=== PATIENT | male | born 1990 | race Caucasian/White ===

== ENCOUNTER 2019-10-04 13:59 | Emergency (ER) | payer OTHER, SELFPAY ==
--- NOTE | ~2019-10-04 | CT_ITS ---
EXAMINATION: CT abdomen pelvis w con DATE: 10/04/2019 17:51 INDICATION: Right lower quadrant abdominal pain TECHNIQUE: Computed tomography (CT) of the abdomen and pelvis was performed with with 100 mL Omnipaqu e-350 mL Omnipaque-350 intravenous contrast. Automated exposure control and iterative reconstruction technique were employed. The dose-length product was 220.89 mGy-cm. COMPARISON: None FINDINGS: Lung bases are clear. Heart size is normal. Mild bilateral gynecomastia. Liver, gallbladder, spleen, pancreas, bilateral adrenal glands and kidneys are normal. The fluid-filled appendix measures up to 6 mm in diameter and is without surrounding inflammatory stranding to suggest acute appendicitis. No a bnormal bowel wall thickening or obstruction. Bladder is normal. No free intraperitoneal gas or fluid . No pathologically enlarged abdominal or pelvic lymphadenopathy. Bones are unremarkable. IMPRESSION: 1. No acute intra-abdominal/pelvic process. Reviewed, dictated and finalized at location A. IERGE RECEPTIONIST
[2019-10-04 14:37] VITALS: BP 113/64; PULSE 84; RESP 19; TEMP 37.7; O2SAT 99
[2019-10-04 15:01] LABS: Basophils Absolute Auto 0.1 K/mm3 (0.0-0.1); Basophils Percent Auto 0.4 % (0.2-1.2); Eosinophils Absolute Auto 0.1 K/mm3 (0-0.3); Eosinophils Percent Auto 0.8 % (0-4.4); Hemoglobin 14.5 g/dL (14.0-18.0); Immature Granulocyte Absolute 0.03 K/mm3 (0.00-0.031); Immature Granulocyte Percent A 0.2 % (0-0.5); Lymphocytes Absolute Auto 1.33 K/mm3 (0.9-3.2); Lymphocytes Percent Auto 10.9 % (18.3-44.2); Mean Corpuscular Hemoglobin 30.1 pg (26-34); Mean Corpuscular Volume 91.5 fl (80-100); Mean Platelet Volume 9.9 fl (7.4-10.4); Monocytes Absolute Auto 0.7 K/mm3 (0.1-0.6); Monocytes Percent Auto 5.5 % (2.6-8.5); Neutrophils Percent Auto 82.2 % (45.5-73.1); Platelet Count Result 275 k/mm3 (150-375); Red Blood Count 4.81 M/mm3 (4.6-6.20); Red Cell Distribution Width 12.7 % (11.5-14.5); White Blood Count 12.2 K/mm3 (4.5-10.0)
[2019-10-04 15:13] LABS: Add Urine Microscopic? YES; Appearance Urine Clear (Clear); Bilirubin Urine Negative (Negative); Blood Urine Negative (Negative); Color Urine Yellow (Yellow); Glucose Urine UA Negative (Negative); Ketones Urine 1+ mg/dL (Negative); Leukocyte Esterase Ur Negative LEU/UL (Negative); Mucus Urine Few /lpf; Nitrate Urine Negative (Negative); Protein Urine Negative (Negative); RBC Urine 0-2 /hpf (0-2); Specific Grav Ur 1.029 (1.001-1.035); Squamous Epithelial Cell Urine Rare /hpf (Few); WBC Urine 0-3 /hpf
[2019-10-04 15:19] LABS: Alanine Aminotransferase 21 U/L (4-50); Albumin Level 4.8 g/dL (3.5-5.1); Alkaline Phosphatase 52 U/L (38-126); Aspartate Amino Transferase 26 U/L (17-59); Bilirubin,Total 0.7 mg/dL (0.2-1.3); Blood Urea Nitrogen 13 mg/dL (9-20); Calcium 9.6 mg/dL (8.4-10.2); Carbon Dioxide 28 mmol/L (22-30); Chloride 98 mmol/L (98-107); Estimated Glomerular Filt Rate > 60; Glucose 114 mg/dL (75-110); Lipase 39 U/L (23-300); Sodium 136 mmol/L (137-145)
--- NOTE | 2019-10-04 16:03 | ED.ABDPAIN ---
HPI - Abdominal Pain General Chief Complaint: Abdominal Pain Stated Complaint: Abd pain Time Seen by Provider: 10/04/19 16:01 Source: patient Mode of arrival: ambulatory Limitations: no limitations History of Present Illness HPI narrative: Pt is a 29 y/o male who presents to the ED with c/o non-radiating, RLQ, ABD pain that started at 10AM. He reports associated nausea, subjective fever, and dysuria, but he denies vomiting, diarrhea, or hematuria. Pt has not taken any pain medicine. He denies any allergies or a PSHx. MD elicited complaint: abdominal pain Onset (ago): hour(s) (8) Pain Consistency: constant Location: RLQ Radiation: none Associated symptoms: nausea, fever and dysuria Related Data Home Medications Medication Instructions Recorded Confirmed atomoxetine PO 10/04/19 10/04/19 fluoxetine mg 10/04/19 hydrocortisone TOPICAL 10/04/19 hydroxyzine HCl 10/04/19 Allergies Allergy/AdvReac Type Severity Reaction Status Date / Time No Known Allergies Allergy Unverified 10/04/19 16:28 Review of Systems Review of Systems: All systems reviewed & are unremarkable except as noted in HPI and below Constitutional: Constitutional: Reports fever(s) Gastrointestinal: Gastrointestinal: Reports abdominal pain (RLQ), Denies diarrhea, Reports nausea and Denies vomiting Genitourinary: Genitourinary: Denies hematuria and Denies dysuria PMF Past Medical History Medical History (Updated 10/04/19 @ 18:35 by Federico Eric DO) No significant past medical history Surgical History Surgical History (Updated 10/04/19 @ 16:18 by Keaton Lind) No significant past surgical history Social History Social History (Updated 10/04/19 @ 16:18 by Keaton Lind) Smoking status: Never smoker Gender identity (if verbalized by the patient): Male Exam Narrative: Exam Narrative: APPEARANCE: No acute distress, nontoxic, resting in bed HEENT: Normocephalic, atraumatic, OMM RESPIRATORY: No respiratory distress, clear to auscultation bilaterally with no rhonchi wheezing or rales CARDIOVASCULAR: RRR s murmur ABDOMINAL: Soft, nondistended, tender palpation right lower quadrant, no tenderness right upper quadrant, left upper quadrant left lower quadrant, no rebound or guarding MUSCULOSKELETAl: Moves all extremities. No clubbing, cyanosis or edema. NEURO: Awake and alert. Following commands, speech normal, no focal deficits SKIN:: Warm, dry. Normal Color PSYCHIATRIC: Normal affect/mood Course Course Emergency Course: Patient states that they are feeling much better at this time. States abdominal pain has resolved. Repeat abdominal exam shows the patient's abdomen to be soft and nontender. Discussed with patient results of workup and diagnosis. Discussed need for follow-up with primary care physician, reasons to return to the emergency department in proper use of medication. Patient understands and agrees to current treatment plan Vital Signs Vital signs: Vital Signs Temperature 99.9 F H 10/04/19 14:37 Pulse Rate 84 10/04/19 14:37 Respiratory Rate 19 10/04/19 14:37 Blood Pressure 113/64 10/04/19 14:37 Pulse Oximetry 99 10/04/19 14:37 Temperature 98.4 F 10/04/19 18:30 Pulse Rate 64 10/04/19 18:30 Respiratory Rate 16 10/04/19 18:30 Blood Pressure 110/69 10/04/19 18:30 Pulse Oximetry 98 10/04/19 18:30 MDM - Abdominal Pain MDM Narrative Medical decision making narrative: Patient's abdomen is soft without significant pain or signs of surgical abdomen on serial exams. Lab and x-ray evaluations are reviewed and patient is felt to be a reasonable candidate for outpatient management. Patient was instructed as to limitations of x-ray and laboratory evaluation and encouraged to return to ED or primary physician for repeat exam in 12 hours if continued or worsening pain Lab Data Result diagrams: 10/04/19 14:41 10/04/19 14:41 Labs: Lab Results 10/04/19 10/04/19
[2019-10-04] MEDS: LACTATED RINGERS 1,000 ML 999 ML IV CONT (16:20)
[2019-10-04] MEDS: KETOROLAC 30 MG/ML VIAL (*BKC) IV PUSH (16:21)
[2019-10-04 18:30] VITALS: BP 110/69; PULSE 64; RESP 16; TEMP 36.9; O2SAT 98
== END 2019-10-04 18:52 | disposition home or self-care (01) ==
PROVIDERS: Emergency Provider Emergency Medicine
DX: R10.31 Right lower quadrant pain (principal)
CPT/HCPCS: 36415; 74177; 80053; 81001; 83690; 85025; 96361; 96374; 99284; J1885; J7120; Q9967

== ENCOUNTER 2020-07-06 09:20 | Emergency (ER) | payer OTHER, SELFPAY ==
--- NOTE | ~2020-07-06 | XR_ITS ---
EXAMINATION: XR hand LT min 3V INDICATION: Left hand pain TECHNIQUE: Three views of the left hand are obtained. COMPARISON: None available FINDINGS: There is no fracture, dislocation, or subluxation. The bones, soft tissues, and joint space s are normal. IMPRESSION: 1. No acute osseous abnormality. Reviewed, dictated and finalized at location A. ITY ASSURANCE ANALYST
[2020-07-06 09:36] VITALS: BP 124/86; PULSE 104; RESP 14; TEMP 36.4; O2SAT 99
--- NOTE | 2020-07-06 09:38 | ED.GENADULT ---
HPI - General Adult General Chief complaint: Extremity Injury, Upper Stated complaint: left thumb injury Time Seen by Provider: 07/06/20 09:25 Source: patient Mode of arrival: ambulatory Limitations: no limitations History of Present Illness HPI narrative: Patient presents with chief complaint of left thumb pain for 1 week after tripping over his dog and landing with his palms out. Patient states initially he was not able to move the thumb very much but he has gained back much of his range of motion but there is still some swelling to the base of the thumb as well as tenderness. Patient denies any prior fractures or any other injuries. Patient denies any open wounds. Patient denies any other medical problems or daily medications. Related Data Home Medications Medication Instructions Recorded Confirmed atomoxetine PO 10/04/19 10/04/19 fluoxetine mg 10/04/19 hydrocortisone TOPICAL 10/04/19 hydroxyzine HCl 10/04/19 Allergies Allergy/AdvReac Type Severity Reaction Status Date / Time No Known Allergies Allergy Unverified 10/04/19 16:28 Review of Systems Review of Systems: Narrative: CONSTITUTIONAL: Denies fever, chills, or sweats. EYES: Denies visual changes, redness, or discharge. ENT: Denies rhinorrhea, congestion, sore throat, or otalgia. CARDIOVASCULAR: Denies chest pain, palpitations, or edema. RESPIRATORY: Denies cough or dyspnea. GASTROINTESTINAL: Denies abdominal pain, nausea, vomiting, or diarrhea. GENITOURINARY: Denies dysuria or hematuria. SKIN: Denies rash or itching. MUSCULOSKELETAL: Reports left thumb pain denies back pain or myalgia. NEUROLOGIC: Denies headache, numbness, dizziness, or weakness. PSYCHIATRIC: Denies anxiety or depression. PMFSH Past Medical History Medical History (Updated 07/06/20 @ 10:31 by Layo Hare PA-C) No significant past medical history Surgical History Surgical History (Updated 10/04/19 @ 16:18 by Keaton Lind) No significant past surgical history Social History Social History (Updated 10/04/19 @ 16:18 by Keaton Lind) Smoking status: Never smoker Gender identity (if verbalized by the patient): Male Exam Narrative: Exam Narrative: GENERAL: Well-appearing, well-nourished, and in no acute distress. HEAD: Normocephalic, atraumatic. EYES: PERRLA and EOMI. ENT: Nares clear, no rhinorrhea or epistaxis. Mucous membranes moist. CHEST: Clear to auscultation. No respiratory distress. No wheezes rales or rhonchi HEART: Regular rate and rhythm. No murmur heard. Normal peripheral pulses. EXTREMITIES: Mild edema to the base of the left arm. Range of motion intact but movement of the base of the thumb does elicit pain. No open wounds. Erythema not noted. SKIN: Warm, dry, no rash. NEURO: No focal deficits. Alert and oriented x3. PSYCH: Normal mood and affect. Course Vital Signs Vital signs: Vital Signs Temperature 97.6 F 07/06/20 09:36 Pulse Rate 104 H 07/06/20 09:36 Respiratory Rate 14 07/06/20 09:36 Blood Pressure 124/86 07/06/20 09:36 Pulse Oximetry 99 07/06/20 09:36 Temperature 97.6 F 07/06/20 09:36 Pulse Rate 104 H 07/06/20 09:36 Respiratory Rate 14 07/06/20 09:36 Blood Pressure 124/86 07/06/20 09:36 Pulse Oximetry 99 07/06/20 09:36 Medical Decision Making MDM Narrative Medical decision making narrative: Discussed with patient that there is no signs of fracture but discussed with him RICE instructions for sprains and strains. Instructed him to follow-up with hand specialist if symptoms persist for further evaluation. Patient verbalized understanding agreement with plan and denies any other questions or concerns. Differential Diagnosis Differential Diagnosis: Fracture, sprain, strain Vital Signs Vital Signs: Vital Signs Temperature 97.6 F 07/06/20 09:36 Pulse Rate 104 H 07/06/20 09:36 Respiratory Rate 14 07/06/20 09:36 Blood Pressure 124/86 07/06/20 09:36 Pulse Oximetry 99 07/06/20
[2020-07-06 10:55] VITALS: BP 127/74; PULSE 60; RESP 16; O2SAT 98
== END 2020-07-06 10:55 | disposition home or self-care (01) ==
PROVIDERS: Emergency Provider Emergency Medicine
DX: S63.642A Sprain of metacarpophalangeal joint of left thumb, initial encounter (principal); W01.0XXA Fall on same level from slipping, tripping and stumbling without subsequent striking against object, initial encounter
CPT/HCPCS: 73130; 99283

== ENCOUNTER 2021-04-08 02:19 | Observation (INO) | payer OTHER, SELFPAY ==
[2021-04-08] VITALS (17 sets, daily range): BP systolic 96–127; BP diastolic 58–86; PULSE 66–98; RESP 12–22; TEMP 36.2–37; O2SAT 96–100; BMI 23.6
--- NOTE | ~2021-04-08 | CT_ITS ---
EXAMINATION: CT abdomen pelvis w con DATE: 04/08/2021 04:29 INDICATION: Right lower quadrant abdominal pain TECHNIQUE: Computed tomography (CT) of the abdomen and pelvis was performed with 100 cc Omnipaque 350 intravenous contrast. The dose-length product was 271.25 mGy-cm. Automated exposure control and iter ative reconstruction technique were employed. COMPARISON: CT dated 10/04/2019. FINDINGS: Lung bases are unremarkable. Heart size normal. No significant pleural or pericardial effus ion. No significant vascular abnormality. No lymphadenopathy. The liver contains a subcentimeter hypodensity right hepatic lobe, most likely cysts. The spleen, gong creas, adrenal glands and kidneys are unremarkable. Gallbladder is present. Appendix is thickened measuring 8 mm with appendiceal enhancement in subtle periappendiceal infiltrat ion of the fat, suspicious for appendicitis. Clinically correlate. No evidence for perforation or abs cess. Nonobstructive bowel gas pattern. Moderate colonic fecal loading. IMPRESSION: 1. Appendiceal thickening, measuring 8 mm, with appendiceal enhancement and subtle periappendiceal in filtration of the fat, suspicious for appendicitis. Clinically correlate. Reviewed, dictated and finalized at location A. IMPRESSION: 1. Appendiceal thickening, measuring 8 mm, with appendiceal enhancement and sub tle periappendiceal infiltration of the fat, suspicious for appendicitis. Clini anderson correlate.
[2021-04-08 02:51] LABS: Basophils Absolute Auto 0.1 K/mm3 (0.0-0.1); Basophils Percent Auto 0.3 % (0.2-1.2); Eosinophils Percent Auto 0.1 % (0-4.4); Hematocrit 43.6 % (42.0-52.0); Hemoglobin 14.3 g/dL (14.0-18.0); Immature Granulocyte Absolute 0.09 K/mm3 (0.00-0.031); Immature Granulocyte Percent A 0.4 % (0-0.5); Lymphocytes Absolute Auto 1.33 K/mm3 (0.9-3.2); Lymphocytes Percent Auto 6.5 % (18.3-44.2); Mean Corpuscular HGB Conc 32.8 g/dl (32-36); Mean Corpuscular Hemoglobin 29.5 pg (26-34); Mean Corpuscular Volume 89.9 fl (80-100); Mean Platelet Volume 9.7 fl (7.4-10.4); Monocytes Absolute Auto 1.1 K/mm3 (0.1-0.6); Monocytes Percent Auto 5.4 % (2.6-8.5); Neutrophils Absolute Auto 17.7 K/mm3 (1.3-6.7); Neutrophils Percent Auto 87.3 % (45.5-73.1); Platelet Count Result 337 k/mm3 (150-375); Red Blood Count 4.85 M/mm3 (4.6-6.20); Red Cell Distribution Width 12.6 % (11.5-14.5); White Blood Count 20.4 K/mm3 (4.5-10.0)
[2021-04-08 03:07] LABS: Add Urine Microscopic? YES; Appearance Urine Clear (Clear); Bilirubin Urine Negative (Negative); Blood Urine Negative (Negative); Color Urine Yellow (Yellow); Glucose Urine UA Negative (Negative); Ketones Urine Trace mg/dL (Negative); Leukocyte Esterase Ur Negative LEU/UL (Negative); Nitrate Urine Negative (Negative); Protein Urine Negative (Negative); RBC Urine 0-2 /hpf (0-2); Specific Grav Ur 1.026 (1.001-1.035); Urobilinogen Urine Negative mg/dL (<2.0); WBC Urine 0-3 /hpf
[2021-04-08 03:23] LABS: Alanine Aminotransferase 22 U/L (4-50); Albumin Level 4.7 g/dL (3.5-5.1); Alkaline Phosphatase 65 U/L (38-126); Anion Gap 10 mmol/L (8-16); Aspartate Amino Transferase 32 U/L (17-59); Bilirubin,Total 0.8 mg/dL (0.2-1.3); Blood Urea Nitrogen 18 mg/dL (9-20); Calcium 9.7 mg/dL (8.4-10.2); Carbon Dioxide 23 mmol/L (22-30); Chloride 106 mmol/L (98-107); Estimated Glomerular Filt Rate > 60; Glucose 144 mg/dL (65-110); Lipase 51 U/L (23-300); Sodium 139 mmol/L (137-145)
--- NOTE | 2021-04-08 04:05 | ED.ABDPAIN ---
HPI - Abdominal Pain General Chief Complaint: Abdominal Pain Stated Complaint: abd pain Time Seen by Provider: 04/08/21 03:16 History of Present Illness HPI narrative: 30 yo male w/ h/o constipation presents to [facility] ED c/o abdominal pain. Severe RLQ abdominal pain since yesterday at about 1700. No radiation. Associated with nuasea, vomiting, subjective fever, and diaphoresis. He has never had this type of pain before. No previous abdominal surgeries. Related Data Home Medications Medication Instructions Recorded Confirmed atomoxetine PO 10/04/19 10/04/19 fluoxetine mg 10/04/19 hydrocortisone TOPICAL 10/04/19 hydroxyzine HCl 10/04/19 Allergies Allergy/AdvReac Type Severity Reaction Status Date / Time No Known Allergies Allergy Verified 04/08/21 02:35 Review of Systems Constitutional: Constitutional: Reports as per HPI Eyes: Eyes: Reports no additional eye complaints ENT: Reports system reviewed and no additional complaints, except as documented Cardiovascular: Cardiovascular: Denies chest pain Respiratory: Respiratory: Denies dyspnea Gastrointestinal: Gastrointestinal: Reports as per HPI Genitourinary: Genitourinary: Denies hematuria and Denies dysuria Musculoskeletal: Musculoskeletal: Denies back pain Neurologic: Reports system reviewed and no additional complaints, except as documented Psychiatric: Psychiatric: Reports anxiety and Reports depression [facility] Past Medical History Medical History No significant past medical history Surgical History Surgical History No significant past surgical history Social History Social History Smoking status: Never smoker Gender identity (if verbalized by the patient): Male Exam Const: General: alert and ill appearing acutely Orientation/consciousness: patient oriented x3 HENMT: Head: normal to inspection Neck: Neck: normal visual inspection Resp: Effort & Inspection: normal respiratory effort Auscultation: clear to auscultation bilaterally Cardio: Rate: regular rate Rhythm: regular rhythm GI: GI Palp: Yes Soft to palpation, Yes Tenderness to palpation present (GI) (RLQ), No Guarding due to palpation present (GI) and Yes Rebound tenderness present Auscultation: Hypoactive bowel sounds present Skin: General skin exam: normal color Neuro: General: patient oriented x3, moves all extremities and CN's II-XI intact bilaterally Speech: normal speech Extrem: General: normal to inspection Psych: Mental Status: mental status grossly normal Attitude: cooperative Course Vital Signs Vital signs: Vital Signs Temperature 36.4 C L 04/08/21 02:31 Pulse Rate 75 04/08/21 02:31 Respiratory Rate 20 04/08/21 02:31 Blood Pressure 127/86 04/08/21 02:31 Pulse Oximetry 100 04/08/21 02:31 Temperature 36.4 C L 04/08/21 02:31 Pulse Rate 78 04/08/21 04:00 Respiratory Rate 22 H 04/08/21 03:49 Blood Pressure 127/86 04/08/21 02:31 Pulse Oximetry 99 04/08/21 03:49 MDM - Abdominal Pain MDM Narrative Medical decision making narrative: Case discussed with Dr. Rosas. He will admit and see the patient this morning. Differential Diagnosis Differential diagnosis: Likely acute appendicitis, calculus of kidney, constipation and diverticulitis Medical Records Attestation: I reviewed the patient's medical records. Lab Data Attestation: I reviewed the patient's lab results. Result diagrams: 04/08/21 02:44 04/08/21 03:04 Labs: Lab Results 04/08/21 04/08/21 04/08/21 Range/Units 02:44 02:44 03:04 WBC 20.4 H (4.5-10.0) K/mm3 RBC 4.85 (4.6-6.20) M/mm3 Hgb 14.3 (14.0-18.0) g/dL Hct 43.6 (42.0-52.0) % MCV 89.9 (80-100) fl MCH 29.5 (26-34) pg MCHC 32.8 (32-36) g/dl RDW 12.6 (11.5-14.5) % Plt
[2021-04-08] MEDS: ONDANSETRON INJ 4 MG/2 ML VIAL IV PUSH (04:10)
[2021-04-08] MEDS: fentaNYL CITRATE INJ (*CRX) 100 MCG/2 ML VIAL 50 MCG IV PUSH ×2 (04:10→10:52)
--- NOTE | 2021-04-08 04:13 | PC.NURSE ---
Patient taken to CT.
[2021-04-08 04:30] LABS: Ethanol < 10 mg/dL (<10)
--- NOTE | 2021-04-08 06:44 | ADMGEN ---
This patient, Abad Taveras, was admitted to Medical Room 254-01. Patient/family oriented to hospital policies and general routines including ID bracelet, bed and alarms, visiting hours, pain management, procedures, bathroom and other care routines, personal items, smoking policy, room service/diet, and visiting hours. Information on how to activate the Rapid Response Team has been discussed. Patient/Family are encouraged to report perceived risks to care and to ask questions if they do not understand what they are told or what they should do.
[2021-04-08] MEDS: SODIUM CHLORIDE 0.9% IV 1,000 ML 125 ML IV CONT (07:18)
--- NOTE | 2021-04-08 10:33 | WPDANESEPPF ---
Anes - Initial Pre Proc Eval Procedure: Lap appendectomy Date/Time: 04/08/21 10:33 Surgeon: Freddy Rosas MD Pre Op Diagnosis: Acute appendicitis Patient Data Age: 30 Gender: M Height: 1.7 m Weight: 68.6 kg Last Vital Signs Temp 36.2 C L 04/08/21 07:21 Pulse 89 04/08/21 07:21 Resp 18 04/08/21 07:21 BP 114/69 04/08/21 07:21 Pulse Ox 98 04/08/21 07:21 Allergies Allergy/AdvReac Type Severity Reaction Status Date / Time No Known Allergies Allergy Verified 04/08/21 02:35 Home Medications Medication Instructions Recorded Confirmed Type hydrocodone-acetaminophen 1 - 2 tablet PO Q6H PRN #7 tablet 04/08/21 Rx triamcinolone acetonide 1 applic TOPICAL BID PRN 04/08/21 04/08/21 History Laboratory Tests 04/08/21 04/08/21 04/08/21 02:44 02:44 03:04 WBC 20.4 K/mm3 H K/mm3 (4.5-10.0) RBC 4.85 M/mm3 M/mm3 (4.6-6.20) Hgb 14.3 g/dL g/dL (14.0-18.0) Hct 43.6 % % (42.0-52.0) MCV 89.9 fl fl (80-100) MCH 29.5 pg pg (26-34) MCHC 32.8 g/dl g/dl (32-36) RDW 12.6 % % (11.5-14.5) Plt Count 337 k/mm3 k/mm3 (150-375) MPV 9.7 fl fl (7.4-10.4) Immature Gran % (Auto) 0.4 % % (0-0.5) Neut % (Auto) 87.3 % H % (45.5-73.1) Lymph % (Auto) 6.5 % L % (18.3-44.2) [place] % (Auto) 5.4 % % (2.6-8.5) Eos % (Auto) 0.1 % % (0-4.4) Baso % (Auto) 0.3 % % (0.2-1.2) Lymph # (Auto) 1.33 K/mm3 K/mm3 (0.9-3.2) [place] # (Auto) 1.1 K/mm3 H K/mm3 (0.1-0.6) Eos # (Auto) 0.0 K/mm3 K/mm3 (0-0.3) Baso # (Auto) 0.1 K/mm3 K/mm3 (0.0-0.1) Abs Immat Gran (auto) 0.09 K/mm3 H K/mm3 (0.00-0.031) Absolute Neuts (auto) 17.7 K/mm3 H K/mm3 (1.3-6.7) Absolute Nucleated RBC 0.0 K/mm3 K/mm3 (0.0-0.012) Nucleated RBC % 0.0 % % (0.0-0.2) Sodium 139 mmol/L mmol/L (137-145) Potassium 4.0 mmol/L mmol/L (3.4-5.0) Chloride 106 mmol/L mmol/L (98-107) Carbon Dioxide 23 mmol/L mmol/L (22-30) Anion Gap 10 mmol/L mmol/L (8-16) BUN 18 mg/dL mg/dL (9-20) Creatinine 1.00 mg/dL mg/dL (0.7-1.3) Estim Creat Clear Calc Not Reportable Estimated GFR > 60 (59 - ) Glucose 144 mg/dL H mg/dL (65-110) Calcium 9.7 mg/dL mg/dL (8.4-10.2) Total Bilirubin 0.8 mg/dL mg/dL (0.2-1.3) AST 32 U/L U/L (17-59) ALT 22 U/L U/L (4-50) Alkaline Phosphatase 65 U/L U/L (38-126) Total Protein 8.0 g/dL g/dL (6.3-8.2) Albumin 4.7 g/dL g/dL (3.5-5.1) Lipase 51 U/L U/L (23-300) Urine Color Yellow (Yellow) Urine Appearance Clear (Clear) Urine pH 7.0 (5.0-9.0) Ur Specific [place] 1.026 (1.001-1.035) Urine Protein Negative mg/dL mg/dL (Negative) Urine Glucose (UA) Negative mg/dL mg/dL (Negative) Urine Ketones Trace mg/dL mg/dL (Negative) Ur Blood (Man) Negative (Negative) Urine Nitrate Negative (Negative) Urine Bilirubin Negative (Negative) Urine Urobilinogen Negative mg/dL mg/dL (<2.0) Leukocyte Esterase Rfl Negative SATHYA/UL SATHYA/UL (Negative) Urine RBC 0-2 /hpf /hpf (0-2) Urine WBC 0-3 /hpf /hpf Ethyl Alcohol 04/08/21 03:04 WBC RBC Hgb Hct MCV MCH MCHC RDW Plt Count MPV Immature Gran % (Auto) Neut % (Auto) Lymph % (Auto) [place] % (Auto) Eos % (Auto) Baso % (Auto) Lymph # (Auto) [place] # (Auto) Eos # (Auto) Baso # (Auto) Abs Immat Gran (auto) Absolute Neuts (auto) Absolute Nucleated RBC
--- NOTE | 2021-04-08 10:47 | PM.SD2 ---
Same Day Admit/Disch: HPI History of Present Illness Chief complaint: Acute appendicitis Narrative: Abad Taveras is a 30 year old male who developed right lower quadrant abdominal pain early yesterday morning. He had some nausea and vomiting as well. He came to the emergency room last night. He was noted to have tenderness in the right lower quadrant [place] [phone] scan showed evidence of early acute appendicitis. He received some fentanyl in the emergency room and his pain nearly resolved. He was put in the hospital early this morning for observation. His pain has returned now and he has right lower quadrant tenderness with some peritoneal signs. He is taken to surgery today for acute appendicitis and laparoscopic appendectomy. [facility] Past Medical History Medical History (Updated 04/08/21 @ 10:52 by Freddy Rosas MD) ADHD (attention deficit hyperactivity disorder) currently on no medications. Has had side effects to all medications tried. Surgical History Surgical History No significant past surgical history Family History Family History Mother Chronic obstructive pulmonary disease Social History Social History (Updated 04/08/21 @ 11:14 by Tarik Dillon DO) Social History: quit 2014 Smoking packs per day: 0.5 Smoking cigarettes per day: 10.0 Years smoked: 4 Smoking pack-years: 2.00 Smoking status: Former smoker Alcohol intake: current Alcohol use details: 1-2 drinks most days Substance use: never Substance use type: does not use Gender identity (if verbalized by the patient): Male Sexual Orientation (if Verbalized by the Patient): He pronoun Spiritual care concerns: No Same Day Admit/Disch: Med Pre-admit Medications Home Medications Medication Instructions Recorded Confirmed Type hydrocodone-acetaminophen 1 - 2 tablet PO Q6H PRN #7 tablet 04/08/21 Rx triamcinolone acetonide 1 applic TOPICAL BID PRN 04/08/21 04/08/21 History Exam Const: General: cooperative, healthy appearing, no acute distress, alert, awake, uncomfortable and well groomed Nutritional Appearance: well nourished Orientation/consciousness: patient oriented x3 Limitations: no limitations HENMT: Head: normocephalic and atraumatic Mouth: Yes Normal oral and palatal mucosa present Eyes: Conjunctivae: conjunctivae normal Pupils: Equal, round and reactive pupils present EOM: EOMs intact bilaterally Neck: Neck: normal visual inspection, no lymphadenopathy and nontender Resp: Effort & Inspection: normal respiratory effort Auscultation: clear to auscultation bilaterally Cardio: Rate: regular rate Rhythm: regular rhythm Heart sounds: no gallops, no murmurs and no rubs GI: Inspection: normal to inspection, non-distended, scaphoid and no visible herniation GI Palp: Yes Soft to palpation, Yes Tenderness to palpation present (GI) ( Right lower quadrant over McBurney's point), Yes Guarding due to palpation present (GI), No Hepatomegaly present, No Splenomegaly present, No Hernia present and No Palpable mass present Auscultation: normal bowel sounds Skin: General skin exam: normal color, elasticity normal, turgor normal, no ecchymosis and no erythema Lesions: no lesions Wounds: no wounds Hair: normal Neuro: General: no focal motor deficits and CN's II-XI intact bilaterally Cranial nerves: Yes Equal, round and reactive pupils present, Yes Bilaterally intact EOM present, Yes facial symmetry and Yes Midline tongue present Speech: normal speech Motor exam (neuro): 5/5 motor strength present throughout and Motor abnormalities not present Extrem: General: no clubbing, cyanosis or edema and edema Psych: Affect: normal affect Thought process: Normal thought process present Insight: Good insight present (Psych) DS: Data Data Completed and Pendi
--- NOTE | 2021-04-08 11:01 | WPDHPUPDATE1 ---
History and Physical Update Update Date/Time: 04/08/21 11:01 History and Physical has been reviewed, including an updated exam of the patient. There are NO changes in the patient's condition. Risks, benefits, and alternatives have been discussed and questions answered. Patient agrees to proceed with procedure.
--- NOTE | 2021-04-08 11:02 | W.PM.PROC2 ---
Procedure Note - Detailed Date of Procedure 04/08/21 Pre-op Diagnosis Acute appendicitis Post-op Diagnosis same Procedure Performed laparoscopic appendectomy Surgeon Freddy Rosas MD Retail Advertising Sales Manager Arias Padilla [employer] Anesthesia general and local ( 0.5% Marcaine with epinephrine) Indications patient developed right lower quadrant pains yesterday morning. He had nausea and vomiting. He came to the emergency room is noted to have right lower quadrant tenderness [place] [id number] scan showed evidence of early acute appendicitis without perforation. Although his pain initially went away, it came back associated with peritoneal signs. He is taken to surgery now for laparoscopic appendectomy. Findings Acute non perforated appendicitis Description of Procedure the patient was taken to surgery and induced into general anesthesia. The abdomen is prepped and draped. Trocars were placed in the usual fashion using 0.5% Marcaine with epinephrine and applied Medical optical trocars. Patient was placed in Trendelenburg with the right side elevated. Freeing of some inflammatory adhesions allowed us to grasp the appendix and elevated anteriorly. The mesoappendix was exposed. The mesoappendix was divided with the cautery and eventually the base of the appendix was skeletonized. The appendiceal artery was cauterized and divided in the process. Vicryl endoloop was then used to ligate the base of the appendix. The appendix was amputated just above the ligature and the mucosa of the appendiceal stump was cauterized. The appendix was immediately placed in an Endo-Catch bag and retrieved through the 10 11 left lower quadrant trocar site. The left lower quadrant trocar was then replaced. We reviewed the areas of dissection. All looked good with no evidence of bleeding or other issues. We evacuated CO2 and removed the trocar sleeves. Skin wounds were closed with subcuticular running 4 0 Monocryl skin suture. The wounds were dressed with Exofin surgical adhesive. Patient was awakened and taken to recovery in good condition. Sponge and needle counts were correct x2. Estimated Blood Loss 5 Drains No Packing No Pathology yes ( Appendix) Complications None Condition stable Disposition PACU
[2021-04-08] MEDS: ceFAZolin 2 GM/D5W 50 ML 2 GM/50 ML BAG IVPB (12:15)
[2021-04-08] MEDS: BUPIVACAINE/EPINEPHRINE 0.5% 10 ML VIAL INFILTRATE (12:35)
[2021-04-08] MEDS: LACTATED RINGERS 1,000 ML 30 ML IV CONT (13:08)
[2021-04-08] MEDS: fentaNYL CITRATE INJ (*CRX) 100 MCG/2 ML VIAL 25 MCG IV PUSH ×4 (13:48→14:06)
[2021-04-08] MEDS: HYDROcodone/acetaminophen (*CRX) 5-325 MG TABLET 1 TAB PO (17:22)
== END 2021-04-08 19:25 | disposition home or self-care (01) ==
LOC: ANHED 06:02 → ANH2MED 06:38
PROVIDERS: Admitting Provider Surgery; Emergency Provider Emergency Medicine; Visit Provider Surgery
PROC: 0DTJ4ZZ Resection of Appendix, Percutaneous Endoscopic Approach (ICD-10-PCS; CPT 44970; principal; 2021-04-08 12:15)
DX: K35.30 Acute appendicitis with localized peritonitis, without perforation or gangrene (principal); Z87.891 Personal history of nicotine dependence
CPT/HCPCS: 44970; 36415; 74177; 80053; 80307; 81001; 83690; 85025; 88304; 96365; 96375; 96376; 99285; A9270; G0378; J0330; J0690; J2250; J2270; J2405; J2543; J2704; J3010; J7030; J7120; Q9967

== ENCOUNTER 2024-01-02 14:45 | Emergency (ER) | payer OTHER, SELFPAY ==
--- NOTE | ~2024-01-02 | XR_ITS ---
XR thoracic spine 3V DATE: 01/02/2024 15:59 INDICATION: Thoracic back strain TECHNIQUE: AP, lateral, swimmer views COMPARISON: None FINDINGS: There is mild thoracic dextroscoliosis. No fracture or dislocation or bone destruction. The thoracic pedicles are intact. No paraspinal soft tissue thickening. Thoracic interspaces are preserv ed. There is minimal degenerative spurring of the thoracic spine. IMPRESSION: Mild dextro scoliosis and minimal degenerative spurring; no fracture Reviewed, dictated and finalized at location A. IMPRESSION: Mild dextro scoliosis and minimal degenerative spurring; no fractur e
[2024-01-02 14:52] VITALS: BP 117/67; PULSE 80; RESP 20; TEMP 36.1; O2SAT 100
--- NOTE | 2024-01-02 15:39 | ED.BACK ---
HPI - Back Pain/Injury General Chief Complaint: Back Pain/Injury Stated Complaint: back injury Time Seen by Provider: 01/02/24 15:35 Source: patient Mode of arrival: ambulatory Limitations: no limitations History of Present Illness HPI Narrative: Abad is a 33-year-old male patient presenting to the ER today with complaints of midthoracic back pain that started yesterday. He reports the pain started after bending forward while cleaning. He denies lifting any heavy objects. Is having sharp stabbing burning pain to the midthoracic spine and in between the shoulder blades. Took ibuprofen at 1:00 p.m. No injury. Related Data Allergies Allergy/AdvReac Type Severity Reaction Status Date / Time No Known Allergies Allergy Verified 02/04/23 06:25 Review of Systems Review of Systems: Pertinent positives per HPI. Patient denies any fever, chills, rash, headache, visual changes, dizziness, cough, runny nose, sore throat, shortness of breath, chest pain, palpitations, nausea, vomiting, diarrhea, constipation, abdominal pain, or any urinary issues. [facility] Past Medical History Medical History ADHD (attention deficit hyperactivity disorder) currently on no medications. Has had side effects to all medications tried. Surgical History Surgical History History of laparoscopic appendectomy 04/08/21 Family History Family History Mother Chronic obstructive pulmonary disease Social History Social History Social History: quit 2014 Smoking packs per day: 0.5 Smoking cigarettes per day: 10.0 Years smoked: 4 Smoking pack-years: 2.00 Smoking status: Former smoker Alcohol intake: current Alcohol use details: 1-2 drinks most days Substance use: never Substance use type: does not use Gender identity (if verbalized by the patient): Male Sexual Orientation (if Verbalized by the Patient): He pronoun Spiritual care concerns: No Comments At the time of my signature, I reviewed and agree with the nursing past medical, surgical, social, and family history. There is no relevant family history pertinent to the patient complaint. Exam Narrative: General: Well-developed, well nourished, in no apparent distress Head: Normocephalic, atraumatic. Cardio: Regular rate and rhythm, s1 and s2 normal, no murmur appreciated. Resp: Clear to auscultation bilaterally, no rhonchi, rales, wheezing or rubs. Musculoskeletal: No deformity, tender to palpation over the midthoracic spine between the shoulder blades, grossly normal range of motion, pain worsens when going from a sitting to a standing position, muscle strength strong and equal, peripheral pulse strong, no edema, no cyanosis, normal gait and station Course Course Emergency Course: Portions of this record may have been created with voice recognition software. Vital Signs Vital signs: Vital Signs Temperature 36.1 C L 01/02/24 14:52 Pulse Rate 80 01/02/24 14:52 Respiratory Rate 20 01/02/24 14:52 Blood Pressure 117/67 01/02/24 14:52 Pulse Oximetry 100 01/02/24 14:52 Oxygen Delivery Room Air 01/02/24 14:52 Temperature 36.1 C L 01/02/24 14:52 Pulse Rate 80 01/02/24 14:52 Respiratory Rate 20 01/02/24 14:52 Blood Pressure 117/67 01/02/24 14:52 Pulse Oximetry 100 01/02/24 14:52 Oxygen Delivery Room Air 01/02/24 14:52 Vital signs reviewed MDM - Back Pain/Injury MDM Narrative Medical decision making narrative: At the time of visit patient is resting comfortably on the exam table. Patient appears to be nontoxic. Diagnostics: Thoracic spine x-ray: Mild dextro scoliosis and minimal degenerative spurring; no fracture Plan: I suspect patient has a thoracic strain/thoracic back pain.
[2024-01-02] MEDS: HYDROcodone/acetaminophen (*CRX) 5-325 MG TABLET 1 TAB PO (16:02)
== END 2024-01-02 17:26 | disposition home or self-care (01) ==
PROVIDERS: Emergency Provider Nurse Practitioner Family
DX: S29.012A Strain of muscle and tendon of back wall of thorax, initial encounter (principal); M41.9 Scoliosis, unspecified; F90.9 Attention-deficit hyperactivity disorder, unspecified type; Z87.891 Personal history of nicotine dependence; X50.9XXA Other and unspecified overexertion or strenuous movements or postures, initial encounter
CPT/HCPCS: 72072; 99283; A9270